=== PATIENT | female | born 1990 | race African-American/Black ===

== ENCOUNTER → 2016-10-27 | Outpatient (CLI) | payer BC ==
[~2016-10-27] MED LIST: ACET-1256 PO; CIPR-255 PO; ETON1IMP2 INJ
[2016-10-30 10:12] LABS: CHLAMYDIA TRACH RNA*** NOT DETECTED (NOT DETECTED); GC (NEIS GONORRHOEAE)RNA** NOT DETECTED (NOT DETECTED)
== END | disposition home or self-care (01) ==
LOC: C.LABSPEC 13:31
PROVIDERS: ATTEND Family Medicine
DX: Z11.3 Encounter for screening for infections with a predominantly sexual mode of transmission (principal)

== ENCOUNTER → 2016-10-27 | Outpatient (CLI) | payer BC | END | disposition home or self-care (01) | LOC: C.PAPS 15:16 | PROVIDERS: ATTEND Family Medicine | DX: Z12.72 Encounter for screening for malignant neoplasm of vagina (principal); R87.610 Atypical squamous cells of undetermined significance on cytologic smear of cervix (ASC-US) ==

== ENCOUNTER → 2016-12-11 | Outpatient (CLI) | payer BC ==
--- NOTE | 2016-12-11 14:44 | DIAGNOSTIC IMAGING REPORT ---
L HUMERUS MIN 2 VIEWS ROUTINE HISTORY: 26 years-old Female NEXPLANON REMOVAL COMPARISON: None available TECHNIQUE: 2 views of the left humerus FINDINGS: There is a 4.0 x 0.2 x 0.2 cm linear structure within the volar medial soft tissues adjacent to the distal humeral metadiaphysis. No acute fracture or dislocation. No additional opaque foreign body. IMPRESSION: 4.0 cm linear structure of the volar medial soft tissues adjacent to the distal humerus suggests -control implant device The above report was generated using voice recognition software. It may contain grammatical, syntax or spelling errors. Electronically signed by: José Manuel Nunez M.D. 12/11/2016 2:43 PM Dictated Date/Time: 12/11/2016 2:40 PM
== END | disposition home or self-care (01) ==
LOC: C.RAD1850 14:29
PROVIDERS: ATTEND Physician Assistant
DX: Z30.46 Encounter for surveillance of implantable subdermal contraceptive (principal)

== ENCOUNTER → 2016-12-20 | Outpatient (CLI) | payer BC | END | disposition home or self-care (01) | LOC: C.PATHSPEC 18:05 | PROVIDERS: ATTEND Surgery | DX: Z30.46 Encounter for surveillance of implantable subdermal contraceptive (principal) ==

== ENCOUNTER → 2016-12-27 | Outpatient (CLI) | payer BC ==
[2016-12-27 09:14] LABS: PREG INTERNAL NEGATIVE QC NEG CLEAR BACKGROUND; PREG INTERNAL POSITIVE QC POS CONTROL LINE
== END | disposition home or self-care (01) ==
LOC: C.LAB 07:54
PROVIDERS: ATTEND Physician Assistant
DX: Z30.9 Encounter for contraceptive management, unspecified (principal)

== ENCOUNTER → 2017-05-11 | Outpatient (CLI) | payer BC | END | disposition home or self-care (01) | LOC: C.LABSPEC 11:26 | PROVIDERS: ATTEND Family Medicine | DX: R87.610 Atypical squamous cells of undetermined significance on cytologic smear of cervix (ASC-US) (principal) ==

== ENCOUNTER → 2017-05-11 | Outpatient (CLI) | payer BC | END | disposition home or self-care (01) | LOC: C.PAPS 12:50 | PROVIDERS: ATTEND Family Medicine | DX: Z12.72 Encounter for screening for malignant neoplasm of vagina (principal) ==